=== PATIENT | female | born 1960 | race African-American/Black ===

== ENCOUNTER 2020-07-30 23:09 | Inpatient (IN) | payer SELFPAY ==
[~2020-07-30] VITALS: Ht 170.2 cm; Wt 104.8 kg
[2020-07-30] MEDS ORDERED: SODIUM CHLORIDE 0.9% 1000ML BAG (SEPSIS BOLUS) IV ONE (23:30)
[2020-07-31] VITALS (20 sets, daily range): BP systolic 149–189; BP diastolic 64–120
[2020-07-31 00:08] LABS: HEMOGLOBIN. 14.1 g/dL (12.0-16.0); MEAN CORPUSCULAR HEMOGLOBIN 27.4 pg (28.0-32.0); MEAN CORPUSCULAR VOLUME 93.1 fL (81.0-99.0); MEAN PLATELET VOLUME 9.2 fl (7.4-10.4); PLATELET 573 x1000/uL (130-400); RED BLOOD CELL COUNT 5.16 mill/uL (4.2-5.4)
[2020-07-31 00:12] LABS: CHLORIDE 108 mEq/L (98-107)
[2020-07-31 00:16] LABS: ETHANOL BLOOD < 10 mg/dL
[2020-07-31 00:20] LABS: CREATINE KINASE 350 IU/L (26-192)
[2020-07-31 00:31] LABS: PLATELET ESTIMATE NORMAL
[2020-07-31] MEDS ORDERED: POTASSIUM CHLORIDE INJ 40 MEQ in DEXT 5% WATER 250 ML IV ONE (01:00)
[2020-07-31] MEDS ORDERED: VANCOMYCIN 1 G PREMIX 200 ML IV SCH (01:00)
[2020-07-31] MEDS ORDERED: POTASSIUM PHOS,M-BASIC-D-BASIC 30 MMOL in SODIUM CHLORIDE 0.9% 500 ML IV ONE (01:00)
[2020-07-31] MEDS ORDERED: PIPERACILLIN/TAZOBACTAM 3.375GM/50ML PREMIX IV SCH (01:00)
[2020-07-31] MEDS ORDERED: POTASSIUM CHLORIDE 20MEQ TABLET SR PO ONE (01:00)
[2020-07-31 01:29] LABS: PHOSPHORUS 5.3 mg/dL (2.5-4.9)
[2020-07-31 02:46] LABS: CHLORIDE 110 mEq/L (98-107)
[2020-07-31] MEDS ORDERED: SODIUM CHLORIDE 0.9% 1,000 ML IV ONE ×2 (03:30→05:00)
[2020-07-31 04:23] LABS: CHLORIDE 114 mEq/L (98-107)
[2020-07-31] MEDS ORDERED: POTASSIUM CHLORIDE INJ 40 MEQ in DEXT 5% WATER 250 ML IV SCH (05:00)
[2020-07-31] MEDS ORDERED: SODIUM BICARBONATE 8.4% 1 MEQ/ML 50ML SYR IV SCH (05:15)
[2020-07-31] MEDS ORDERED: SODIUM CHL 0.45% + KCL 20MEQ/L 1,000 ML IV SCH (06:00)
[2020-07-31] MEDS ORDERED: INSULIN REGULAR (DRIP) 100 UNITS in SODIUM CHLORIDE 0.9% 99 ML IV ONE (06:00)
[2020-07-31 06:20] LABS: CHLORIDE 118 mEq/L (98-107)
[2020-07-31] MEDS ORDERED: INSULIN REGULAR (DRIP) 100 UNITS in SODIUM CHLORIDE 0.9% 99 ML IV SCH ×2 (07:00→07:15)
[2020-07-31] MEDS ORDERED: ACETAMINOPHEN 325MG TABLET PO PRN (07:15)
[2020-07-31] MEDS ORDERED: ONDANSETRON HCL 4MG/2ML INJ IV PRN (07:15)
[2020-07-31] MEDS ORDERED: DEXTROSE 50% WATER 50ML SYRINGE IV PRN ×2 (07:15)
[2020-07-31] MEDS ORDERED: CLONIDINE 0.1MG TABLET PO PRN (07:15)
[2020-07-31] MEDS: SODIUM CHLORIDE 0.9% 1,000 ML IV SCH ×2 (07:17→18:07)
[2020-07-31] MEDS: BLOOD SUGAR DIAGNOSTIC STRIP TEST SCH ×14 (07:17→22:15)
[2020-07-31 16:31] LABS: T4 FREE 1.45 ng/dL (0.76-1.46)
[2020-07-31] MEDS: DILTIAZEM HCL 5MG/ML 5ML VIAL IV PRN (18:26)
[2020-07-31] MEDS ORDERED: HYDRALAZINE 20MG/ML VIAL IV PRN (18:45)
[2020-07-31 20:13] LABS: CLARITY URINE CLEAR (CLEAR); COLOR URINE YELLOW (YELLOW); KETONES URINE 2+ (NEGATIVE); LEUKOCYTE ESTERASE URINE NEGATIVE (NEGATIVE); NITRITE URINE NEGATIVE (NEGATIVE); OCCULT BLOOD URINE 3+ (NEGATIVE); PH URINE 5.5 (4.5-8.0); PROTEIN URINE 2+ (NEGATIVE); SPECIFIC GRAVITY URINE 1.029 (1.005-1.030); UROBILINOGEN URINE 0.2 E.U./dL (0.2-1.0)
[2020-07-31] MEDS ORDERED: NON FORMULARY PATIENT HOME MED XX SCH ×2 (21:00→22:00)
[2020-07-31] MEDS: DEXTROSE 5% WATER 1,000 ML IV SCH (21:24)
[2020-07-31] MEDS ORDERED: ENALAPRIL 1.25MG/ML VIAL 1ML IV PRN (23:00)
[2020-08-01] VITALS (72 sets, daily range): BP systolic 90–165; BP diastolic 45–82
[2020-08-01] MEDS: INSULIN REGULAR (DRIP) 100 UNITS in SODIUM CHLORIDE 0.9% 99 ML IV SCH ×2 (00:47→15:27)
[2020-08-01 05:41] LABS: HEMATOCRIT. 38.1 % (36.0-48.0); HEMOGLOBIN. 12.3 g/dL (12.0-16.0); MEAN CORPUSCULAR HEMOGLOBIN 27.7 pg (28.0-32.0); MEAN CORPUSCULAR VOLUME 85.9 fL (81.0-99.0); MEAN PLATELET VOLUME 8.7 fl (7.4-10.4); PLATELET 365 x1000/uL (130-400); RED BLOOD CELL COUNT 4.43 mill/uL (4.2-5.4); RED CELL DISTRIBUTION WIDTH 13.3 % (11.6-14.6)
[2020-08-01 05:54] LABS: CHLORIDE 133 mEq/L (98-107)
[2020-08-01] MEDS ORDERED: LIDOCAINE HCL 1% 20ML VIAL (Pyxis) INJ ONE (07:24)
[2020-08-01] MEDS ORDERED: SODIUM BICARBONATE 4% (2.4MEQ) 5ML VIAL IV ONE (07:24)
[2020-08-01 08:04] LABS: PLATELET ESTIMATE NORMAL
[2020-08-01] MEDS: DEXTROSE 5% WATER 1,000 ML IV SCH ×2 (12:06→23:39)
[2020-08-01 17:34] LABS: BG BASE EXCESS -9.6 mmol/L (-2.0-2.0); BG CARBOXYHEMOGLOBIN 0.2 % (0.5-1.5); BG DEOXYHEMOGLOBIN 6.1 % (0.0-5.0); BG FRACTION INSPIRED OXYGEN 36; BG HCO3 ACT 12.7 mmol/L (22.0-26.0); BG OXYGEN SATURATION 93.9 % (92.0-98.5); BG OXYHEMOGLOBIN 93.7 % (94.0-97.0); BG PCO2 20.4 mmHg (35.0-45.0); BG PH 7.412 (7.350-7.450); BG PO2 62.4 mmHg (75.0-100.0); BG SAMPLE SITE RIGHT RADIAL; BG TOTAL HEMOGLOBIN 13.4 g/dL (12.0-18.0); BG VENT MODE NASAL CANNULA
[2020-08-01 17:36] LABS: CHLORIDE 134 mEq/L (98-107)
[2020-08-01] MEDS: DILTIAZEM HCL 5MG/ML 5ML VIAL IV PRN (17:50)
[2020-08-01] MEDS: LACTULOSE 20G/30ML UDC NG SCH (21:45)
[2020-08-01 23:22] LABS: CHLORIDE 133 mEq/L (98-107)
[2020-08-02] VITALS (183 sets, daily range): BP systolic 51–175; BP diastolic 27–108
[2020-08-02] MEDS: PHENYLEPHRINE 100 MG in DEXT 5% WATER 240 ML IV PRN ×3 (02:01→15:19)
[2020-08-02] MEDS: DEXTROSE 5% WATER 1,000 ML IV SCH ×2 (03:16→09:28)
[2020-08-02 05:48] LABS: CHLORIDE 130 mEq/L (98-107)
[2020-08-02] MEDS: BLOOD SUGAR DIAGNOSTIC STRIP TEST SCH ×12 (08:15→19:15)
[2020-08-02] MEDS ORDERED: ACETAMINOPHEN 650MG/20.3ML UDC PO PRN (08:30)
[2020-08-02] MEDS ORDERED: MIDAZOLAM 100MG/100ML PMX 100 ML IV PRN (09:00)
[2020-08-02] MEDS ORDERED: FENTANYL CITRATE/PF 2,500 MCG in SODIUM CHLORIDE 0.9% 200 ML IV PRN (09:00)
[2020-08-02] MEDS ORDERED: VASOPRESSIN 20 UNIT in SODIUM CHLORIDE 0.9% 99 ML IV PRN (09:15)
[2020-08-02] MEDS ORDERED: POTASSIUM CHLORIDE 20MEQ TABLET SR PO SCH (09:15)
[2020-08-02] MEDS: NOREPINEPHRINE 8 MG in DEXT 5% WATER 242 ML IV PRN ×3 (09:24→17:24)
[2020-08-02] MEDS ORDERED: ENOXAPARIN 30MG/0.3ML SYR SUBCUT SCH (09:30)
[2020-08-02] MEDS ORDERED: PANTOPRAZOLE SODIUM 40 MG/VIAL IV SCH (09:30)
[2020-08-02] MEDS ORDERED: POTASSIUM CHLORIDE INJ 40 MEQ in DEXT 5% WATER 250 ML IV NR (10:00)
[2020-08-02] MEDS: LACTULOSE 20G/30ML UDC NG SCH ×2 (10:25→17:24)
[2020-08-02] MEDS ORDERED: SODIUM CHLORIDE 0.9% 1,000 ML IV ONE (12:30)
[2020-08-02 12:34] LABS: BG BASE EXCESS -17.4 mmol/L (-2.0-2.0); BG CARBOXYHEMOGLOBIN 0.7 % (0.5-1.5); BG DEOXYHEMOGLOBIN 2.2 % (0.0-5.0); BG FRACTION INSPIRED OXYGEN 80; BG HCO3 ACT 14.2 mmol/L (22.0-26.0); BG METHEMOGLOBIN 0.1 % (0.0-1.5); BG OXYGEN SATURATION 97.8 % (92.0-98.5); BG PCO2 59.4 mmHg (35.0-45.0); BG PH 6.997 (7.350-7.450); BG PO2 113.5 mmHg (75.0-100.0); BG SAMPLE SITE LEFT RADIAL; BG TOTAL HEMOGLOBIN 13.2 g/dL (12.0-18.0); BG TOTAL RESPIRATORY RATE 28 b/min; BG VENT MODE VENT - AC
[2020-08-02] MEDS ORDERED: SODIUM BICARBONATE 8.4% 1 MEQ/ML 50ML SYR IV NR (12:45)
[2020-08-02] MEDS: PIPERACILLIN/TAZOBACTAM 2.25 G in DEXTROSE 5% WATER 50 ML IV SCH ×2 (13:32→17:24)
[2020-08-02] MEDS: INSULIN REGULAR (DRIP) 100 UNITS in SODIUM CHLORIDE 0.9% 99 ML IV SCH (14:15)
[2020-08-02] MEDS ORDERED: ENOXAPARIN 60MG/0.6ML SYR SUBCUT SCH (15:00)
[2020-08-02 15:30] LABS: CHLORIDE 122 mEq/L (98-107)
[2020-08-02 15:34] LABS: INR 1.5; PROTHROMBIN TIME 15.6 sec (9.6-11.0)
[2020-08-02 15:37] LABS: PHOSPHORUS 2.4 mg/dL (2.5-4.9)
[2020-08-02 15:38] LABS: LDL CHOLESTEROL 39 mg/dL (5-100)
[2020-08-02 15:39] LABS: CREATINE KINASE MB FRACTION 10.5 ng/mL (0.5-3.6)
[2020-08-02 15:40] LABS: T4 FREE 1.27 ng/dL (0.76-1.46)
[2020-08-02 15:41] LABS: HDL CHOLESTEROL 30 mg/dL (40-59)
[2020-08-02 15:51] LABS: CREATINE KINASE 1580 IU/L (26-192)
[2020-08-02] MEDS ORDERED: POTASSIUM PHOS,M-BASIC-D-BASIC 20 MMOL in DEXT 5% WATER 243.3333 ML IV NR (18:00)
[2020-08-03] MEDS ORDERED: ENOXAPARIN 100MG/ML SYR SUBCUT SCH (15:00)
== END 2020-08-02 20:03 | disposition expired | DRG 720 ==
LOC: ER 23:09 → MICUSO 07-31 03:17 → EDBEDREQ 07-31 04:26 → EDBEDREQTM 07-31 04:26 → MICUSO 07-31 17:54
PROVIDERS: ADMIT Hospitalist; ATTEND Hospitalist
PROC: 02HV33Z Insertion of Infusion Device into Superior Vena Cava, Percutaneous Approach (ICD-10-PCS; 2020-08-01)
PROC: B548ZZA Ultrasonography of Superior Vena Cava, Guidance (ICD-10-PCS; 2020-08-01)
PROC: 5A12012 Performance of Cardiac Output, Single, Manual (ICD-10-PCS; principal; 2020-08-02)
PROC: 0BH17EZ Insertion of Endotracheal Airway into Trachea, Via Natural or Artificial Opening (ICD-10-PCS; 2020-08-02)
PROC: 5A1935Z Respiratory Ventilation, Less than 24 Consecutive Hours (ICD-10-PCS; 2020-08-02)
DX: A41.9 Sepsis, unspecified organism (principal); E11.10 Type 2 diabetes mellitus with ketoacidosis without coma; E43 Unspecified severe protein-calorie malnutrition; E83.52 Hypercalcemia; E86.0 Dehydration; E86.1 Hypovolemia; E87.0 Hyperosmolality and hypernatremia; E11.22 Type 2 diabetes mellitus with diabetic chronic kidney disease; E87.6 Hypokalemia; G92 Toxic encephalopathy; I13.0 Hypertensive heart and chronic kidney disease with heart failure and stage 1 through stage 4 chronic kidney disease, or unspecified chronic kidney disease; I46.9 Cardiac arrest, cause unspecified; I48.91 Unspecified atrial fibrillation; J69.0 Pneumonitis due to inhalation of food and vomit; J96.00 Acute respiratory failure, unspecified whether with hypoxia or hypercapnia; N17.0 Acute kidney failure with tubular necrosis; N18.9 Chronic kidney disease, unspecified; R31.29 Other microscopic hematuria; R65.21 Severe sepsis with septic shock; Z20.822 Contact with and (suspected) exposure to COVID-19; R74.01 Elevation of levels of liver transaminase levels; Z68.36 Body mass index [BMI] 36.0-36.9, adult
CPT/HCPCS: 36415; 36600; 71045; 72170; 76937; 80048; 80053; 80061; 80320; 81003; 82010; 82140; 82375; 82550; 82553; 82805; 82962; 83036; 83605; 83735; 83880; 83970; 84100; 84155; 84165; 84439; 84443; 84481; 84484; 85025; 93005; 93970; 99291; C1725; C9113; J0360; J1650; J1815; J2250; J2370; J2543; J3370; J3480; J3490; J7030; J7040; J7050; J7060; J7070; U0003; A4315; G0480